=== PATIENT | female | born 1980 | race Caucasian/White ===

== ENCOUNTER 2017-05-18 18:33 | Emergency (ER) | payer MEDICAID ==
[2017-05-18 20:32] VITALS: BP 133/65
== END 2017-05-18 20:32 | disposition home or self-care (01) ==
LOC: ED 18:33
DX: H66.91 Otitis media, unspecified, right ear (principal); H92.02 Otalgia, left ear; Z88.1 Allergy status to other antibiotic agents
CPT/HCPCS: J0696

== ENCOUNTER 2017-10-28 18:09 | Emergency (ER) | payer MEDICAID ==
[~2017-10-28] VITALS: Ht 152.4 cm; Wt 90.3 kg
[2017-10-28 18:22] VITALS: Ht 152.4 cm; Wt 90.3 kg
[2017-10-29 04:53] VITALS: BP 130/87
== END 2017-10-29 04:52 | disposition home or self-care (01) ==
LOC: ED 18:09
DX: J06.9 Acute upper respiratory infection, unspecified (principal)